=== PATIENT | female | born 1990 | race Caucasian/White ===

== ENCOUNTER 2017-12-17 20:52 | Emergency (ER) | payer MEDICAID, OTHER ==
[~2017-12-17] VITALS: Ht 157.5 cm; Wt 78.9 kg
[~2017-12-17 20:52] MED LIST: BUSP5TAB2 PO; DOCU240C31 PO; FERR325T18 PO; HYDR1TAB12 PO; IBUP-1222 PO; SERT50TA PO; ZOLP-413 PO
[2017-12-17 20:54] VITALS: BP 132/85
[2017-12-17] MEDS ORDERED: FLUORESCEIN OPHTHALMIC 1 MG STRIP ONE ×2 (21:49→22:55)
[2017-12-17] MEDS ORDERED: PROPARACAINE OPHTH 0.5%, 15ML ONE (21:50)
[2017-12-17] MEDS ORDERED: FLUORESCEIN OPHTHALMIC 1 MG STRIP EACHEYE ONE (22:00)
[2017-12-17] MEDS ORDERED: PROPARACAINE OPHTH 0.5%, 15ML EACHEYE ONE (22:00)
== END 2017-12-18 00:23 | disposition home or self-care (01) ==
LOC: ED 23:50
DX: H10.31 Unspecified acute conjunctivitis, right eye (principal); Z88.6 Allergy status to analgesic agent
CPT/HCPCS: 99284

== ENCOUNTER 2017-12-22 17:41 | Emergency (ER) | payer MEDICAID ==
[~2017-12-22] VITALS: Ht 157.5 cm; Wt 77.0 kg
[2017-12-22] MEDS ORDERED: IBUPROFEN 200 MG TABLET PO ONE (19:00)
[2017-12-22] MEDS ORDERED: HYDROcodone/APAP 5/325 TABLET ONE (19:28)
[2017-12-22] MEDS ORDERED: HYDROcodone/APAP 5/325 TABLET PO ONE (19:30)
[2017-12-22 19:48] VITALS: BP 145/74
== END 2017-12-22 19:49 | disposition home or self-care (01) ==
LOC: ED 19:06
DX: S53.401A Unspecified sprain of right elbow, initial encounter (principal); X58.XXXA Exposure to other specified factors, initial encounter; Y93.89 Activity, other specified; Y99.8 Other external cause status; Y92.89 Other specified places as the place of occurrence of the external cause
CPT/HCPCS: 99284

== ENCOUNTER 2018-02-07 17:53 | Emergency (ER) | payer MEDICAID ==
[~2018-02-07] VITALS: Ht 157.5 cm; Wt 75.2 kg
[2018-02-07] MEDS ORDERED: SODIUM CHLORIDE FLUSH 10ML SYR IVF ONE (19:00)
[2018-02-07] MEDS ORDERED: ONDANSETRON 2MG/ML, 2ML IVPush ONE (19:00)
[2018-02-07] MEDS ORDERED: SODIUM CHLORIDE 0.9% 1,000ML IVBOLUS ONE (19:00)
[2018-02-07] MEDS ORDERED: FAMOTIDINE 20 MG/2 ML IVP ONE (19:00)
[2018-02-07] MEDS ORDERED: FAMOTIDINE 20 MG/2 ML ONE (19:20)
[2018-02-07] MEDS ORDERED: ONDANSETRON ODT 8 MG ONE (19:20)
[2018-02-07] MEDS ORDERED: ONDANSETRON ODT 8 MG PO ONE (19:30)
[2018-02-07 19:34] LABS: BASOPHILS # (AUTO) 0.05 x10^3/uL (0-0.1); BASOPHILS % (AUTO) 1 % (0-1); EOSINOPHILS # (AUTO) 0.04 x10^3/uL (0-0.4); EOSINOPHILS % (AUTO) 1 % (1-7); LYMPHOCYTES # (AUTO) 2.53 x10^3/uL (1-3.4); LYMPHOCYTES % (AUTO) 38 % (22-44); MD NO; MEAN CORPUSCULAR HEMOGLOBIN 28.9 pg (27.0-34.8); MEAN CORPUSCULAR HGB CONC 33.1 g/dL (32.4-35.8); MICROSCOPIC NOT IND; MONOCYTES # (AUTO) 0.55 x10^3/uL (0.2-0.8); MONOCYTES % (AUTO) 8 % (2-9); NEUTROPHILS # (AUTO) 3.43 x10^3/uL (1.8-6.8); NEUTROPHILS % (AUTO) 52 % (42-75); PLATELET COUNT 229 x10^3/uL (130-400); RED BLOOD COUNT 4.32 x10^6/uL (3.82-5.3); RED CELL DISTRIBUTION WIDTH 14.8 % (9.6-15.2)
[2018-02-07 19:42] LABS: ALBUMIN 3.6 g/dL (3.4-5.0); ANION GAP 8 mmol/L (5-15); CALCIUM 8.8 mg/dL (8.5-10.1); CHLORIDE 107 mmol/L (98-107)
[2018-02-07 19:45] LABS: CULTURE INDICATED? NO
[2018-02-07 19:59] LABS: CREATININE 0.64 mg/dL (0.55-1.02)
[2018-02-07] MEDS ORDERED: METOCLOPRAMIDE 5 MG/ML, 2ML ONE (20:12)
[2018-02-07 20:30] VITALS: BP 101/52
[2018-02-07] MEDS ORDERED: METOCLOPRAMIDE 5 MG/ML, 2ML IVPush ONE (20:30)
== END 2018-02-07 20:53 | disposition home or self-care (01) ==
LOC: ED 20:49
DX: O21.0 Mild hyperemesis gravidarum (principal); O99.341 Other mental disorders complicating pregnancy, first trimester; F32.9 Major depressive disorder, single episode, unspecified; I47.1 Supraventricular tachycardia; Z3A.01 Less than 8 weeks gestation of pregnancy
CPT/HCPCS: 36415; 76801; 80048; 81003; 82040; 84702; 85025; 93005; 96361; 96374; 96375; 99285; J2765; J7030; Q0162; S0028

== ENCOUNTER 2019-03-06 11:27 | Inpatient (IN) | payer MEDICAID ==
[~2019-03-06] VITALS: Ht 157.5 cm; Wt 78.6 kg
[~2019-03-06 11:27] MED LIST changes: -HYDR1TAB12 PO; +HYDR1TAB13 PO
[2019-03-06 11:37] VITALS: BP 133/77
[2019-03-06] MEDS ORDERED: NEWBORN KIT ONE (12:26)
[2019-03-06] MEDS ORDERED: LACTATED RINGERS 1,000 ML IVBOLUS ONE ×2 (12:30→13:00)
[2019-03-06] MEDS ORDERED: METOCLOPRAMIDE 5 MG/ML, 2ML IV ONE (12:30)
[2019-03-06] MEDS ORDERED: SODIUM CITRATE/CITRIC ACID 15 ML UDC PO ONE (12:30)
[2019-03-06 12:42] LABS: BASOPHILS # (AUTO) 0.03 x10^3/uL (0-0.1); BASOPHILS % (AUTO) 0 % (0-1); EOSINOPHILS # (AUTO) 0.02 x10^3/uL (0-0.4); EOSINOPHILS % (AUTO) 0 % (1-7); LYMPHOCYTES # (AUTO) 2.05 x10^3/uL (1-3.4); LYMPHOCYTES % (AUTO) 26 % (22-44); MD NO; MEAN CORPUSCULAR HEMOGLOBIN 29.3 pg (27.0-34.8); MEAN CORPUSCULAR HGB CONC 32.8 g/dL (32.4-35.8); MEAN CORPUSCULAR VOLUME 89.1 fL (80-100); MEAN PLATELET VOLUME 8.5 fL (7.4-10.4); MONOCYTES # (AUTO) 0.52 x10^3/uL (0.2-0.8); MONOCYTES % (AUTO) 7 % (2-9); NEUTROPHILS # (AUTO) 5.16 x10^3/uL (1.8-6.8); NEUTROPHILS % (AUTO) 66 % (42-75); PLATELET COUNT 195 x10^3/uL (130-400)
[2019-03-06] MEDS ORDERED: OXYTOCIN 30U/ 0.9% NaCL 500ML 500 ML ONE (12:46)
[2019-03-06] MEDS ORDERED: SODIUM CITRATE/CITRIC ACID 15 ML UDC ONE ×2 (12:46→12:47)
[2019-03-06] MEDS ORDERED: METOCLOPRAMIDE 5 MG/ML, 2ML ONE (12:46)
[2019-03-06] MEDS ORDERED: FENTANYL PF 100 MCG/2ML ONE (13:14)
[2019-03-06] MEDS ORDERED: CEFAZOLIN 1,000 MG ONE ×2 (13:36)
[2019-03-06] MEDS ORDERED: OXYTOCIN 10 UNITS/ML, 1ML ONE ×4 (13:36)
[2019-03-06] MEDS ORDERED: ONDANSETRON 2MG/ML, 2ML ONE (13:40)
[2019-03-06] MEDS: LACTATED RINGERS 1,000 ML IV SCH ×5 (13:50→23:25)
[2019-03-06] MEDS ORDERED: PHENYLEPHRINE 10 MG/ML ONE (14:04)
[2019-03-06] MEDS ORDERED: FENTANYL PF 100 MCG/2ML IV PRN (15:30)
[2019-03-06] MEDS ORDERED: CALCIUM CARBONATE 500 MG TAB.CHEW PO PRN (15:30)
[2019-03-06] MEDS ORDERED: ONDANSETRON 2MG/ML, 2ML IV PRN ×2 (15:30)
[2019-03-06] MEDS ORDERED: EPHEDRINE 50 MG/ML, 1ML IVPush PRN (15:30)
[2019-03-06] MEDS ORDERED: PROCHLORPERAZINE 5 MG/ML, 2ML IV PRN (15:30)
[2019-03-06] MEDS ORDERED: METHYLERGONOVINE 0.2 MG/ML IM PRN (15:30)
[2019-03-06] MEDS ORDERED: CARBOPROST TROMETHAMINE 250 MCG/ML, 1ML IM PRN (15:30)
[2019-03-06] MEDS ORDERED: DIPHENHYDRAMINE 50 MG/ML, 1ML IVPush PRN (15:30)
[2019-03-06] MEDS ORDERED: MISOPROSTOL 200 MCG TABLET PR PRN (15:30)
[2019-03-06] MEDS ORDERED: HYDROcodone/APAP 7.5-325MG/15ML UDC PO PRN (15:30)
[2019-03-06] MEDS ORDERED: ACETAMINOPHEN 325 MG TABLET PO PRN (15:30)
[2019-03-06] MEDS ORDERED: MORPHINE SULFATE 4 MG/ML, 1ML IVPush PRN ×2 (15:30)
[2019-03-06] MEDS ORDERED: morphine SULFATE 10 MG/ML, 1ML IVPush PRN (15:30)
[2019-03-06] MEDS ORDERED: SIMETHICONE 80 MG CHEW TAB PO PRN (15:30)
[2019-03-06] MEDS: OXYTOCIN 30U/ 0.9% NaCL 500ML 500 ML IV SCH (16:11)
[2019-03-06 17:00] VITALS: BP 134/79
[2019-03-06] MEDS: HYDROcodone/APAP 5/325 TABLET PO PRN (19:37)
[2019-03-06 20:00] VITALS: BP 106/62
[2019-03-06] MEDS ORDERED: KETOROLAC 30 MG/1 ML ONE (21:01)
[2019-03-06] MEDS: KETOROLAC 30 MG/1 ML IVPush SCH (21:05)
[2019-03-06] MEDS: BUSPIRONE 5 MG TABLET PO SCH (21:58)
[2019-03-06 22:31] LABS: BASOPHILS # (AUTO) 0.05 x10^3/uL (0-0.1); BASOPHILS % (AUTO) 1 % (0-1); EOSINOPHILS # (AUTO) 0.01 x10^3/uL (0-0.4); EOSINOPHILS % (AUTO) 0 % (1-7); LYMPHOCYTES # (AUTO) 1.76 x10^3/uL (1-3.4); LYMPHOCYTES % (AUTO) 18 % (22-44); MD NO; MEAN CORPUSCULAR HEMOGLOBIN 29.3 pg (27.0-34.8); MEAN CORPUSCULAR HGB CONC 32.8 g/dL (32.4-35.8); MEAN CORPUSCULAR VOLUME 89.5 fL (80-100); MEAN PLATELET VOLUME 8.5 fL (7.4-10.4); MONOCYTES # (AUTO) 0.65 x10^3/uL (0.2-0.8); MONOCYTES % (AUTO) 7 % (2-9); NEUTROPHILS # (AUTO) 7.22 x10^3/uL (1.8-6.8); NEUTROPHILS % (AUTO) 75 % (42-75); PLATELET COUNT 166 x10^3/uL (130-400); RED BLOOD COUNT 3.44 x10^6/uL (3.82-5.3); RED CELL DISTRIBUTION WIDTH 13.7 % (9.6-15.2)
[2019-03-07] MEDS: HYDROcodone/APAP 5/325 TABLET PO PRN ×4 (00:29→17:30)
[2019-03-07 00:40] VITALS: BP 111/70
[2019-03-07] MEDS: LACTATED RINGERS 1,000 ML IV SCH ×8 (01:09→23:17)
[2019-03-07] MEDS: OXYTOCIN 30U/ 0.9% NaCL 500ML 500 ML IV SCH ×3 (01:25→21:37)
[2019-03-07] MEDS: KETOROLAC 30 MG/1 ML IVPush SCH ×3 (03:11→15:00)
[2019-03-07 04:30] VITALS: BP 106/68
[2019-03-07 07:51] VITALS: BP 112/71
[2019-03-07] MEDS: DOCUSATE 100 MG CAPSULE PO PRN (09:37)
[2019-03-07] MEDS: BUSPIRONE 5 MG TABLET PO SCH ×2 (09:37→21:36)
[2019-03-07] MEDS: PRENATAL VIT/IRON/FA 1 EACH TABLET PO SCH (09:37)
[2019-03-07] MEDS: SERTRALINE 100MG TABLET PO SCH (10:22)
[2019-03-07 12:00] VITALS: BP 110/72
[2019-03-07 14:00] VITALS: BP 120/78
[2019-03-07] MEDS: IBUPROFEN 800 MG TABLET PO PRN (17:29)
[2019-03-07 19:36] VITALS: BP 109/73
[2019-03-08] MEDS: IBUPROFEN 800 MG TABLET PO PRN ×2 (01:59→09:40)
[2019-03-08] MEDS: LACTATED RINGERS 1,000 ML IV SCH (04:44)
[2019-03-08 07:40] VITALS: BP 112/74
[2019-03-08] MEDS ORDERED: HYDR-3240 PO (07:46)
[2019-03-08] MEDS ORDERED: IBUP-1222 PO (07:46)
[2019-03-08] MEDS ORDERED: DOCU-131 PO (07:49)
[2019-03-08] MEDS ORDERED: FERR325T5 PO (07:49)
[2019-03-08] MEDS: SERTRALINE 100MG TABLET PO SCH (09:00)
[2019-03-08] MEDS: DOCUSATE 100 MG CAPSULE PO PRN (09:38)
[2019-03-08] MEDS: PRENATAL VIT/IRON/FA 1 EACH TABLET PO SCH (09:38)
[2019-03-08] MEDS: HYDROcodone/APAP 5/325 TABLET PO PRN (09:39)
[2019-03-08] MEDS: BUSPIRONE 5 MG TABLET PO SCH (09:40)
== END 2019-03-08 10:23 | disposition home or self-care (01) | DRG 788 ==
LOC: LDOP 11:27 → LDIP 12:27 → 2NW 16:54
PROVIDERS: ADMIT Obstetrics & Gynecology; ATTEND Obstetrics & Gynecology
PROC: 10D00Z1 Extraction of Products of Conception, Low, Open Approach (ICD-10-PCS; principal; 2019-03-06)
DX: O34.211 Maternal care for low transverse scar from previous cesarean delivery (principal); F32.9 Major depressive disorder, single episode, unspecified; F41.9 Anxiety disorder, unspecified; O75.89 Other specified complications of labor and delivery; O99.344 Other mental disorders complicating childbirth; M79.7 Fibromyalgia; Z37.0 Single live birth; Z3A.37 37 weeks gestation of pregnancy; Z88.6 Allergy status to analgesic agent
CPT/HCPCS: 36415; 82803; 85025; 86850; 86900; G0378; J0690; J1885; J3010; C1765; J2370; J2590; J2765; J7120